=== PATIENT | male | born 1950 | race Caucasian/White ===

== ENCOUNTER 2017-08-24 05:16 | Inpatient (IN) ==
[2017-08-17 13:34] LABS: Basophils # 0.1 10*3/uL (0.0-0.2); Basophils % 0.8 % (0.0-0.8); Eosinophils # 0.3 10*3/uL (0.0-0.87); Eosinophils % 4.4 % (0.00-10.9); Hematocrit 40.3 VOL% (42.0-52.0); Hemoglobin 12.9 GM/DL (14.0-18.0); Immature Granulocytes % 0.5 %; Immature Granulocytes Absolute 0.03 #; Lymphocytes # 1.9 10*3/uL (1.4-4.0); Lymphocytes % 28.5 % (21.2-54.2); Mean Corpuscular Hemoglobin 29 PG (27-34); Mean Corpuscular Volume 89.2 FL (87-102); Mean Platelet Volume 11.4 FL (9.6-12.0); Monocytes # 0.8 10*3/uL (0.11-0.8); Neutrophils # 3.5 10*3/uL (1.4-7.4); Neutrophils % 53.8 % (38.7-73.9); Platelet Count 148 T/CUMM (130-400); Red Blood Count 4.52 MC/CUMM (3.8-5.5); Red Cell Distribution Width 13.5 % (9.3-17.3); White Blood Count 6.6 T/CUMM (4-12)
[2017-08-17 13:43] LABS: Apearance,Urine CLEAR (Clear); Bilirubin,Urine Negative (Negative); Blood, Urine Negative (Negative); Glucose,Urine (UA) Negative (Negative); Ketones,Urine Negative (Negative); Mucus,Urine Occasional /LPF (Occasional); Nitrite,Urine Negative (Negative); PT Patient Result 10.5 SECS; Partial Thromboplastin Time 24.8 SECS (0-40); Protein,Urine Negative; RBC,Urine 1 /HPF (0-4); Squamous Epithelial Cell,Urine Occasional /HPF (0-10); Urine Color Yellow (Yellow); Urine Specific Gravity 1.026 (1.001-1.035); WBC,Urine <1 /HPF (0-6)
[2017-08-17 13:57] LABS: Albumin 3.9 G/DL (3.4-5.0); Bilirubin,Total 0.6 MG/DL (0.2-1.0); Calcium 8.3 MG/DL (8.5-10.1); Osmolality,Calculated 284.1 MOS/KG (273-304); Potassium 4.5 MMOL/L (3.5-5.1); Total Protein 6.6 G/DL (6.4-8.3)
[2017-08-24] MEDS ORDERED: GABAPENTIN 400 MG CAPSULE PO ONE (05:40)
[2017-08-24] MEDS ORDERED: DIAZEPAM 5 MG TABLET PO ONE (05:40)
[2017-08-24] MEDS ORDERED: FAMOTIDINE 20 MG TABLET PO ONE (05:40)
[2017-08-24] MEDS ORDERED: ACETAMINOPHEN 500 MG TABLET PO ONE (05:40)
[2017-08-24] MEDS ORDERED: VANCOMYCIN INJ 1,000 MG in SODIUM CHLORIDE 0.9% 250 ML IV ONE (06:00)
[2017-08-24] MEDS ORDERED: CLINDAMYCIN INJ 900 MG in PREMIX 1 EACH IV ONE (06:00)
[2017-08-24] MEDS ORDERED: VANCOMYCIN 1,000 MG VIAL ONE (06:02)
[2017-08-24] MEDS ORDERED: CLINDAMYCIN INJ 50 ML IV ONE (06:03)
[2017-08-24] MEDS ORDERED: DIAZEPAM 5 MG TABLET ONE (06:45)
[2017-08-24] MEDS ORDERED: GABAPENTIN 400 MG CAPSULE ONE (06:45)
[2017-08-24] MEDS ORDERED: ACETAMINOPHEN 500 MG TABLET ONE (06:46)
[2017-08-24] MEDS ORDERED: FAMOTIDINE 20 MG TABLET ONE (06:46)
[2017-08-24] MEDS: LACTATED RINGERS 1,000 ML IV SCH ×2 (07:53→10:50)
[2017-08-24] MEDS ORDERED: TRANEXAMIC ACID 1,000 MG/10 ML VIAL IV ONE (09:39)
[2017-08-24] MEDS ORDERED: NALOXONE 0.4 MG/ML VIAL IV PRN (10:39)
[2017-08-24] MEDS ORDERED: MAGNESIUM HYDROXIDE SUSP 30 ML UDCUP PO PRN (10:39)
[2017-08-24] MEDS ORDERED: PROMETHAZINE 25 MG/1 ML VIAL IM PRN (10:39)
[2017-08-24] MEDS ORDERED: BISACODYL 10 MG SUPP RECTAL PRN (10:39)
[2017-08-24] MEDS ORDERED: HYDROmorphone 2 MG/1 ML VIAL IV PRN (10:39)
[2017-08-24] MEDS ORDERED: diphenhydrAMINE CAP 25 MG CAPSULE PO PRN (10:39)
[2017-08-24] MEDS ORDERED: ONDANSETRON 4 MG/2 ML VIAL IV PRN (10:39)
[2017-08-24] MEDS ORDERED: TEMAZEPAM 7.5 MG CAPSULE PO PRN (10:39)
[2017-08-24] MEDS ORDERED: LACTULOSE 20 GM/30 ML UDCUP PO PRN (10:39)
[2017-08-24 11:03] LABS: Apearance,Urine Clear (Clear); Bilirubin,Urine Negative (Negative); Blood, Urine Negative (Negative); Glucose,Urine (UA) Negative (Negative); Ketones,Urine Negative (Negative); Nitrite,Urine Negative (Negative); Protein,Urine Negative; Urine Color Yellow (Yellow)
[2017-08-24] MEDS ORDERED: LACTATED RINGERS 1,000 ML IV ONE (11:27)
[2017-08-24] MEDS ORDERED: MIDAZOLAM 2 MG/2 ML VIAL ONE (11:27)
[2017-08-24] MEDS ORDERED: ONDANSETRON 4 MG/2 ML VIAL ONE (11:27)
[2017-08-24] MEDS ORDERED: SODIUM CHLORIDE 0.9% 500 ML IV ONE (11:27)
[2017-08-24] MEDS ORDERED: fentaNYL 100 MCG/2 ML VIAL ONE (11:27)
[2017-08-24] MEDS ORDERED: PROPOFOL 200 MG/20 ML VIAL IV ONE (11:27)
[2017-08-24 11:37] LABS: WBC,Urine 0-1 /HPF (0-6)
[2017-08-24 11:38] LABS: Mucus,Urine 1+ /LPF (Occasional); Squamous Epithelial Cell,Urine Few /HPF (0-10)
[2017-08-24] MEDS: HYDROmorphone PCA 30 MG/30 ML SYRINGE IV SCH (14:28)
[2017-08-24] MEDS: CLINDAMYCIN INJ 900 MG in PREMIX 1 EACH IV SCH ×2 (15:34→21:31)
[2017-08-24] MEDS: DOCUSATE SODIUM 100 MG CAPSULE PO SCH (21:31)
[2017-08-24] MEDS: GABAPENTIN 100 MG CAPSULE PO SCH (21:31)
[2017-08-24] MEDS: FONDAPARINUX 2.5 MG/0.5 ML SYRINGE SUBCUT SCH (21:31)
[2017-08-25] MEDS: LACTATED RINGERS 1,000 ML IV SCH (04:39)
[2017-08-25 06:25] LABS: Basophils % 0.2 % (0.0-0.8); Eosinophils # 0.1 10*3/uL (0.0-0.87); Eosinophils % 0.8 % (0.00-10.9); Hematocrit 35.8 VOL% (42.0-52.0); Hemoglobin 12.1 GM/DL (14.0-18.0); Immature Granulocytes % 0.5 %; Immature Granulocytes Absolute 0.04 #; Lymphocytes % 11.1 % (21.2-54.2); Mean Corpuscular HGB Conc 33.8 GM/DL (32-36); Mean Corpuscular Hemoglobin 29 PG (27-34); Mean Corpuscular Volume 86.1 FL (87-102); Mean Platelet Volume 11.5 FL (9.6-12.0); Monocytes # 1.5 10*3/uL (0.11-0.8); Monocytes % 16.4 % (1.7-12.7); Neutrophils # 6.3 10*3/uL (1.4-7.4); Platelet Count 141 T/CUMM (130-400); Red Blood Count 4.16 MC/CUMM (3.8-5.5); Red Cell Distribution Width 13.5 % (9.3-17.3); White Blood Count 8.9 T/CUMM (4-12)
[2017-08-25 06:46] LABS: Eosinophils 1 % (0-10); Giant Platelets Few; Hypochromasia 1+; Lymphocytes 10 % (20-55); Ovalocytes Slight; Platelet Estimate Normal; Segmented Neutrophils 75 % (50-85); Total Cells Counted 100
[2017-08-25 07:01] LABS: Calcium 7.8 MG/DL (8.5-10.1); Osmolality,Calculated 274.8 MOS/KG (273-304); Potassium 4.4 MMOL/L (3.5-5.1)
[2017-08-25] MEDS: NAPROXEN 250 MG TABLET PO SCH (09:16)
[2017-08-25] MEDS: CALCIUM (CARBONATE)/VITAMIN D 600 MG-400 UNIT TABLET PO SCH (09:18)
[2017-08-25] MEDS: GABAPENTIN 100 MG CAPSULE PO SCH ×2 (09:18→20:31)
[2017-08-25] MEDS: OMEGA 3 ACID ETHYL ESTERS 1 GM CAPSULE PO SCH (09:18)
[2017-08-25] MEDS: LACTOBACILLUS ACIDOPHILUS/BULGARICUS CAPLET PO SCH (09:18)
[2017-08-25] MEDS: PANTOPRAZOLE 40 MG TABLET PO SCH (09:19)
[2017-08-25] MEDS: DOCUSATE SODIUM 100 MG CAPSULE PO SCH ×2 (09:19→20:30)
[2017-08-25] MEDS: ATORVASTATIN 10 MG TABLET PO SCH (09:19)
[2017-08-25] MEDS: ASPIRIN EC 81 MG TABLET PO SCH (09:20)
[2017-08-25] MEDS: MULTIVITAMIN (CENTRUM) TABLET PO SCH (09:22)
[2017-08-25] MEDS ORDERED: ACETAMINOPHEN 325 MG TABLET PO PRN (10:40)
[2017-08-25] MEDS: HYDROmorphone PCA 30 MG/30 ML SYRINGE IV SCH (11:54)
[2017-08-25] MEDS: FONDAPARINUX 2.5 MG/0.5 ML SYRINGE SUBCUT SCH (20:30)
[2017-08-26] MEDS: LACTATED RINGERS 1,000 ML IV SCH (01:39)
[2017-08-26] MEDS: LACTOBACILLUS ACIDOPHILUS/BULGARICUS CAPLET PO SCH (09:20)
[2017-08-26] MEDS: ASPIRIN EC 81 MG TABLET PO SCH (09:20)
[2017-08-26] MEDS: DOCUSATE SODIUM 100 MG CAPSULE PO SCH ×2 (09:21→20:20)
[2017-08-26] MEDS: ATORVASTATIN 10 MG TABLET PO SCH (09:21)
[2017-08-26] MEDS: CALCIUM (CARBONATE)/VITAMIN D 600 MG-400 UNIT TABLET PO SCH (09:21)
[2017-08-26] MEDS: MULTIVITAMIN (CENTRUM) TABLET PO SCH (09:21)
[2017-08-26] MEDS: GABAPENTIN 100 MG CAPSULE PO SCH ×2 (09:22→20:21)
[2017-08-26] MEDS: PANTOPRAZOLE 40 MG TABLET PO SCH (09:22)
[2017-08-26] MEDS: OMEGA 3 ACID ETHYL ESTERS 1 GM CAPSULE PO SCH (09:22)
[2017-08-26] MEDS: NAPROXEN 250 MG TABLET PO SCH ×2 (10:29→10:50)
[2017-08-26] MEDS: FONDAPARINUX 2.5 MG/0.5 ML SYRINGE SUBCUT SCH (20:20)
[2017-08-27] MEDS: LACTOBACILLUS ACIDOPHILUS/BULGARICUS CAPLET PO SCH (08:37)
[2017-08-27] MEDS: ASPIRIN EC 81 MG TABLET PO SCH (08:37)
[2017-08-27] MEDS: CALCIUM (CARBONATE)/VITAMIN D 600 MG-400 UNIT TABLET PO SCH (08:37)
[2017-08-27] MEDS: MULTIVITAMIN (CENTRUM) TABLET PO SCH (08:37)
[2017-08-27] MEDS: OMEGA 3 ACID ETHYL ESTERS 1 GM CAPSULE PO SCH (08:38)
[2017-08-27] MEDS: DOCUSATE SODIUM 100 MG CAPSULE PO SCH (08:38)
[2017-08-27] MEDS: PANTOPRAZOLE 40 MG TABLET PO SCH (08:38)
[2017-08-27] MEDS: ATORVASTATIN 10 MG TABLET PO SCH (08:38)
[2017-08-27] MEDS: NAPROXEN 250 MG TABLET PO SCH (08:38)
[2017-08-27] MEDS: GABAPENTIN 100 MG CAPSULE PO SCH (08:38)
[2017-08-27 11:34] VITALS: BP 130/70
== END 2017-08-27 14:00 | disposition home health service (06) | DRG 470 ==
LOC: N.SDSINP 05:16 → N.3E 11:42
PROVIDERS: ADMIT Orthopaedic Surgery; ATTEND Orthopaedic Surgery

== ENCOUNTER 2020-10-02 05:33 | Inpatient (IN) ==
[2020-09-26 11:37] LABS: Basophils % 0.7 % (0.0-0.8); Eosinophils # 0.2 10*3/uL (0.0-0.87); Eosinophils % 3.9 % (0.00-10.9); Hematocrit 44.3 VOL% (42.0-52.0); Hemoglobin 14.8 GM/DL (14.0-18.0); Immature Granulocytes % 0.5 %; Immature Granulocytes Absolute 0.03 #; Lymphocytes # 1.6 10*3/uL (1.4-4.0); Lymphocytes % 26.5 % (21.2-54.2); Mean Corpuscular HGB Conc 33.4 GM/DL (32-36); Mean Corpuscular Volume 92.9 FL (87-102); Mean Platelet Volume 11.4 FL (9.6-12.0); Monocytes % 11.5 % (1.7-12.7); Neutrophils % 56.9 % (38.7-73.9); Platelet Count 151 T/CUMM (130-400); Red Blood Count 4.77 MC/CUMM (3.8-5.5); Red Cell Distribution Width 12.8 % (9.3-17.3); White Blood Count 5.9 T/CUMM (4-12)
[2020-09-26 11:48] LABS: PT Patient Result 10.9 SECS (9.8-11.9); Partial Thromboplastin Time 27.3 SECS (23.9-33.8)
[2020-09-26 12:01] LABS: Albumin 3.9 G/DL (3.4-5.0); Bilirubin,Total 1.2 MG/DL (0.2-1.0); Calcium 8.7 MG/DL (8.5-10.1); Osmolality,Calculated 283.3 MOS/KG (273-304); Potassium 4.6 MMOL/L (3.5-5.1); Total Protein 6.4 G/DL (6.4-8.3)
[2020-09-26 12:43] LABS: Amorphous Crystals,Urine Few /HPF (Few); Bilirubin,Urine Negative (Negative); Blood, Urine Negative (Negative); Calcium Oxalate Crystals,Urine Occasional /HPF (Few); Glucose,Urine (UA) Negative (Negative); Ketones,Urine Negative (Negative); Mucus,Urine Moderate /LPF (Occasional); Nitrite,Urine Negative (Negative); Protein,Urine 30 MG/DL; Squamous Epithelial Cell,Urine Occasional /HPF (0-10); Urine Appearance CLOUDY (Clear); Urine Color Amber (Yellow); Urine Specific Gravity 1.033 (1.001-1.035); WBC,Urine 3 /HPF (0-6)
[2020-10-02] MEDS ORDERED: ACETAMINOPHEN 500 MG TABLET PO ONE (06:26)
[2020-10-02] MEDS ORDERED: GABAPENTIN 400 MG CAPSULE PO ONE (06:26)
[2020-10-02] MEDS ORDERED: FAMOTIDINE 20 MG TABLET PO ONE (06:26)
[2020-10-02] MEDS ORDERED: CLINDAMYCIN INJ 50 ML IV ONE (06:30)
[2020-10-02] MEDS ORDERED: VANCOMYCIN INJ 1,000 MG in SODIUM CHLORIDE 0.9% 250 ML IV ONE (06:30)
[2020-10-02] MEDS ORDERED: LACTATED RINGERS 1,000 ML IV SCH (06:30)
[2020-10-02] MEDS ORDERED: MIDAZOLAM 2 MG/2 ML VIAL ONE ×2 (06:37→07:05)
[2020-10-02] MEDS ORDERED: LIDOCAINE 2% 5 ML VIAL ONE (06:37)
[2020-10-02] MEDS ORDERED: fentaNYL 100 MCG/2 ML VIAL ONE (06:37)
[2020-10-02] MEDS ORDERED: DEXMEDETOMIDINE 200 MCG/2 ML VIAL ONE (06:39)
[2020-10-02] MEDS ORDERED: BUPIVACAINE SPINAL 0.75% 2 ML AMP SPINAL ONE (06:39)
[2020-10-02] MEDS ORDERED: ROPIVACAINE 0.5% 30 ML VIAL ONE (06:45)
[2020-10-02] MEDS ORDERED: DEXAMETHASONE 4 MG/1 ML VIAL ONE (06:45)
[2020-10-02] MEDS ORDERED: diphenhydrAMINE CAP 25 MG CAPSULE PO PRN (07:30)
[2020-10-02] MEDS ORDERED: PROMETHAZINE 25 MG/1 ML VIAL IM PRN (07:30)
[2020-10-02] MEDS ORDERED: CLINDAMYCIN INJ 900 MG in PREMIX 1 EACH IV ONE (07:30)
[2020-10-02] MEDS ORDERED: MAGNESIUM HYDROXIDE SUSP 30 ML UDCUP PO PRN (07:30)
[2020-10-02] MEDS ORDERED: BISACODYL 10 MG SUPP RECTAL PRN (07:30)
[2020-10-02] MEDS ORDERED: ONDANSETRON 4 MG/2 ML VIAL IV PRN (07:30)
[2020-10-02] MEDS ORDERED: MORPHINE 4 MG/1 ML VIAL IV PRN ×2 (07:30→13:26)
[2020-10-02] MEDS ORDERED: LACTULOSE 20 GM/30 ML UDCUP PO PRN (07:30)
[2020-10-02] MEDS ORDERED: PHENYLEPHRINE 1 MG/10 ML SYRINGE IV ONE (07:40)
[2020-10-02] MEDS ORDERED: ONDANSETRON 4 MG/2 ML VIAL ONE (07:42)
[2020-10-02] MEDS ORDERED: TRANEXAMIC ACID 1,000 MG/10 ML VIAL ONE (08:02)
[2020-10-02] MEDS ORDERED: GABAPENTIN 100 MG CAPSULE PO SCH (09:00)
[2020-10-02] MEDS ORDERED: NON-FORMULARY MEDICATION (Elderberry Fruit And Flower 460-115 mg Capsule) PO SCH (09:00)
[2020-10-02 09:47] LABS: Bilirubin,Urine Negative (Negative); Blood, Urine Negative (Negative); Glucose,Urine (UA) Negative (Negative); Ketones,Urine Negative (Negative); Nitrite,Urine Negative (Negative); Protein,Urine Negative; Urine Appearance Clear (Clear); Urine Color Yellow (Yellow)
[2020-10-02] MEDS: CLINDAMYCIN INJ 900 MG in PREMIX 1 EACH IV SCH ×2 (16:18→23:24)
[2020-10-02] MEDS: FONDAPARINUX 2.5 MG/0.5 ML SYRINGE SUBCUT SCH (18:41)
[2020-10-02] MEDS: IBUPROFEN 800 MG TABLET PO SCH (18:41)
[2020-10-02] MEDS: GABAPENTIN 300 MG CAPSULE PO SCH (20:54)
[2020-10-02] MEDS: DOCUSATE SODIUM 100 MG CAPSULE PO SCH (20:55)
[2020-10-02] MEDS ORDERED: NAPROXEN SODIUM 220 MG PO SCH (21:00)
[2020-10-02] MEDS ORDERED: TEMAZEPAM 7.5 MG CAPSULE PO PRN (21:00)
[2020-10-03 06:17] LABS: Basophils % 0.3 % (0.0-0.8); Eosinophils # 0.1 10*3/uL (0.0-0.87); Eosinophils % 1.4 % (0.00-10.9); Hematocrit 37.8 VOL% (42.0-52.0); Hemoglobin 12.5 GM/DL (14.0-18.0); Immature Granulocytes % 0.4 %; Immature Granulocytes Absolute 0.04 #; Lymphocytes # 1.3 10*3/uL (1.4-4.0); Lymphocytes % 13.9 % (21.2-54.2); Mean Corpuscular HGB Conc 33.1 GM/DL (32-36); Mean Platelet Volume 11.6 FL (9.6-12.0); Platelet Count 126 T/CUMM (130-400); Red Blood Count 4.02 MC/CUMM (3.8-5.5); Red Cell Distribution Width 12.7 % (9.3-17.3); White Blood Count 9.5 T/CUMM (4-12)
[2020-10-03 06:41] LABS: Osmolality,Calculated 281.4 MOS/KG (273-304); Potassium 4.1 MMOL/L (3.5-5.1)
[2020-10-03 06:44] LABS: Hypochromasia Slight
[2020-10-03 06:45] LABS: Microcytosis 1+; Platelet Estimate Adequate
[2020-10-03] MEDS ORDERED: VITAMIN E 400 UNIT CAPSULE PO SCH (09:00)
[2020-10-03] MEDS: CHOLECALCIFEROL 1,000 UNIT TABLET PO SCH (10:21)
[2020-10-03] MEDS: CALCIUM (CARBONATE)/VITAMIN D 600 MG-400 UNIT TABLET PO SCH (10:22)
[2020-10-03] MEDS: MULTIVITAMIN (CENTRUM) TABLET PO SCH (10:22)
[2020-10-03] MEDS: DOCUSATE SODIUM 100 MG CAPSULE PO SCH ×2 (10:22→21:16)
[2020-10-03] MEDS: ATORVASTATIN 20 MG TABLET PO SCH (10:22)
[2020-10-03] MEDS: FERROUS SULFATE 325 MG TABLET PO SCH (10:22)
[2020-10-03] MEDS: OMEGA 3 ACID ETHYL ESTERS 1 GM CAPSULE PO SCH (10:22)
[2020-10-03] MEDS: PANTOPRAZOLE 40 MG TABLET PO SCH (10:23)
[2020-10-03] MEDS: ASCORBIC ACID 500 MG TABLET PO SCH (10:23)
[2020-10-03] MEDS: ASPIRIN EC 81 MG TABLET PO SCH (10:23)
[2020-10-03] MEDS: IBUPROFEN 800 MG TABLET PO SCH ×2 (10:23→17:31)
[2020-10-03] MEDS: VITAMIN E 400 UNIT CAPSULE PO SCH (10:24)
[2020-10-03] MEDS: FONDAPARINUX 2.5 MG/0.5 ML SYRINGE SUBCUT SCH (17:31)
[2020-10-03] MEDS: GABAPENTIN 300 MG CAPSULE PO SCH (21:16)
[2020-10-04 08:18] VITALS: BP 109/47
[2020-10-04] MEDS: ASPIRIN EC 81 MG TABLET PO SCH (09:34)
[2020-10-04] MEDS: DOCUSATE SODIUM 100 MG CAPSULE PO SCH (09:34)
[2020-10-04] MEDS: CALCIUM (CARBONATE)/VITAMIN D 600 MG-400 UNIT TABLET PO SCH (09:34)
[2020-10-04] MEDS: ATORVASTATIN 20 MG TABLET PO SCH (09:34)
[2020-10-04] MEDS: OMEGA 3 ACID ETHYL ESTERS 1 GM CAPSULE PO SCH (09:34)
[2020-10-04] MEDS: PANTOPRAZOLE 40 MG TABLET PO SCH (09:35)
[2020-10-04] MEDS: MULTIVITAMIN (CENTRUM) TABLET PO SCH (09:35)
[2020-10-04] MEDS: FERROUS SULFATE 325 MG TABLET PO SCH (09:35)
[2020-10-04] MEDS: IBUPROFEN 800 MG TABLET PO SCH (09:35)
[2020-10-04] MEDS: CHOLECALCIFEROL 1,000 UNIT TABLET PO SCH (09:35)
[2020-10-04] MEDS: ASCORBIC ACID 500 MG TABLET PO SCH (09:35)
[2020-10-04] MEDS: VITAMIN E 400 UNIT CAPSULE PO SCH (09:35)
[2020-10-04] MEDS: FONDAPARINUX 2.5 MG/0.5 ML SYRINGE SUBCUT SCH (11:19)
== END 2020-10-04 12:00 | disposition home health service (06) | DRG 470 ==
LOC: N.OR 05:33 → N.SDSINP 05:35 → EDSTATUS 11:00 → N.3E 13:06
PROVIDERS: ADMIT Orthopaedic Surgery; ATTEND Orthopaedic Surgery

== ENCOUNTER 2020-10-30 10:08 | Observation (INO) ==
[2020-10-30] MEDS ORDERED: SODIUM CHLORIDE 0.9% 1,000 ML IV STA (11:21)
[2020-10-30 11:26] LABS: Basophils # 0.1 10*3/uL (0.0-0.2); Basophils % 0.5 % (0.0-0.8); Eosinophils # 0.2 10*3/uL (0.0-0.87); Eosinophils % 2.6 % (0.00-10.9); Hematocrit 43.9 VOL% (42.0-52.0); Hemoglobin 14.1 GM/DL (14.0-18.0); Immature Granulocytes % 0.4 %; Immature Granulocytes Absolute 0.04 #; Lymphocytes # 1.6 10*3/uL (1.4-4.0); Lymphocytes % 17.5 % (21.2-54.2); Mean Corpuscular HGB Conc 32.1 GM/DL (32-36); Mean Corpuscular Volume 92.4 FL (87-102); Mean Platelet Volume 11.3 FL (9.6-12.0); Monocytes % 16.3 % (1.7-12.7); Neutrophils % 62.7 % (38.7-73.9); Platelet Count 167 T/CUMM (130-400); Red Blood Count 4.75 MC/CUMM (3.8-5.5); Red Cell Distribution Width 12.9 % (9.3-17.3); White Blood Count 9.3 T/CUMM (4-12)
[2020-10-30 11:44] LABS: Lymphocytes 15 % (20-55); Platelet Estimate Adequate; Segmented Neutrophils 70 % (50-85); Total Cells Counted 100
[2020-10-30 11:45] LABS: Albumin 3.4 G/DL (3.4-5.0); Bilirubin,Total 1.2 MG/DL (0.2-1.0); Calcium 8.8 MG/DL (8.5-10.1); Osmolality,Calculated 276.7 MOS/KG (273-304); Potassium 3.9 MMOL/L (3.5-5.1); Total Protein 7.1 G/DL (6.4-8.2)
[2020-10-30] MEDS ORDERED: HYDROmorphone 2 MG/1 ML VIAL IV PRN ×2 (12:46→16:04)
[2020-10-30] MEDS ORDERED: KETOROLAC 15 MG/1 ML VIAL IV PRN (12:46)
[2020-10-30] MEDS ORDERED: BISACODYL 5 MG TABLET PO PRN (12:46)
[2020-10-30] MEDS ORDERED: ALBUTEROL/IPRATROPIUM 3 ML NEB RESP TX PRN (12:46)
[2020-10-30] MEDS: ONDANSETRON 4 MG/2 ML VIAL IV PRN ×2 (15:04→21:00)
[2020-10-30] MEDS: LEVOFLOXACIN INJ 750 MG in PREMIX 1 EACH IV SCH (15:05)
[2020-10-30] MEDS: LACTATED RINGERS 1,000 ML IV SCH ×2 (15:05→20:51)
[2020-10-30] MEDS ORDERED: LIDOCAINE 1%/EPI INJ 20 ML VIAL ONE (15:31)
[2020-10-30] MEDS ORDERED: BUPIVACAINE MPF 0.25% 30 ML VIAL ONE (15:31)
[2020-10-30 15:42] LABS: Bilirubin,Urine Negative (Negative); Blood, Urine Negative (Negative); Glucose,Urine (UA) Negative (Negative); Ketones,Urine 20 mg/dL (Negative); Mucus,Urine Few /LPF (Occasional); Nitrite,Urine Negative (Negative); Protein,Urine Negative; RBC,Urine 9 /HPF (0-4); Squamous Epithelial Cell,Urine Occasional /HPF (0-10); Urine Appearance CLEAR (Clear); Urine Color Yellow (Yellow)
[2020-10-30] MEDS: metroNIDAZOLE INJ 500 MG in PREMIX 1 EACH IV SCH ×2 (15:55→20:51)
[2020-10-30] MEDS ORDERED: diphenhydrAMINE 50 MG/1 ML VIAL IV PRN (16:04)
[2020-10-30] MEDS ORDERED: ONDANSETRON 4 MG/2 ML VIAL IV PRN (16:04)
[2020-10-30] MEDS ORDERED: PROMETHAZINE INJ 25 MG in SODIUM CHLORIDE 0.9% 50 ML IV PRN (16:04)
[2020-10-30] MEDS ORDERED: MEPERIDINE 25 MG/1 ML VIAL IV PRN (16:04)
[2020-10-30] MEDS ORDERED: fentaNYL 100 MCG/2 ML VIAL ONE (16:21)
[2020-10-30] MEDS ORDERED: CLINDAMYCIN INJ 50 ML IV ONE (16:43)
[2020-10-30] MEDS ORDERED: DEXAMETHASONE 4 MG/1 ML VIAL ONE (16:43)
[2020-10-30] MEDS ORDERED: ROCURONIUM 50 MG/5 ML VIAL IV ONE (16:43)
[2020-10-30] MEDS ORDERED: SEVOFLURANE 1 UNIT/15 MINUTE INH ONE ×10 (16:43→18:45)
[2020-10-30] MEDS ORDERED: SUCCINYLCHOLINE 200 MG/10 ML VIAL ONE (16:43)
[2020-10-30] MEDS ORDERED: LIDOCAINE 2% 5 ML VIAL ONE (16:43)
[2020-10-30] MEDS ORDERED: ONDANSETRON 4 MG/2 ML VIAL ONE (16:43)
[2020-10-30] MEDS ORDERED: propofoL 200 MG/20 ML VIAL IV ONE (16:43)
[2020-10-30] MEDS ORDERED: TISSUE ADHESIVE 1 EACH APPLICATOR TOP ONE ×2 (17:40→18:50)
[2020-10-30] MEDS ORDERED: LACTATED RINGERS 1,000 ML IV ONE (18:14)
[2020-10-30] MEDS ORDERED: PHENYLEPHRINE 1 MG/10 ML SYRINGE IV ONE (18:14)
[2020-10-30] MEDS ORDERED: NEOSTIGMINE 10 MG/10 ML VIAL ONE (18:45)
[2020-10-30] MEDS ORDERED: GLYCOPYRROLATE 0.4 MG/2 ML VIAL ONE (18:45)
[2020-10-30] MEDS ORDERED: HYDROmorphone 2 MG/1 ML VIAL ONE (18:49)
[2020-10-30] MEDS ORDERED: LABETALOL 20 MG/4 ML SYRINGE IV ONE ×2 (18:53→19:27)
[2020-10-30] MEDS: HYDROmorphone 2 MG/1 ML VIAL IV PRN ×4 (19:15→19:30)
[2020-10-31] MEDS: ACETAMINOPHEN 325 MG TABLET PO PRN ×2 (00:48→23:11)
[2020-10-31] MEDS: metroNIDAZOLE INJ 500 MG in PREMIX 1 EACH IV SCH ×3 (04:59→20:36)
[2020-10-31] MEDS: LACTATED RINGERS 1,000 ML IV SCH ×3 (05:03→20:40)
[2020-10-31 05:48] LABS: Basophils % 0.2 % (0.0-0.8); Hematocrit 36.3 VOL% (42.0-52.0); Hemoglobin 11.7 GM/DL (14.0-18.0); Immature Granulocytes % 0.2 %; Immature Granulocytes Absolute 0.02 #; Lymphocytes # 0.6 10*3/uL (1.4-4.0); Mean Corpuscular HGB Conc 32.2 GM/DL (32-36); Mean Corpuscular Volume 93.1 FL (87-102); Mean Platelet Volume 11.7 FL (9.6-12.0); Monocytes % 16.4 % (1.7-12.7); Neutrophils % 77.2 % (38.7-73.9); Platelet Count 127 T/CUMM (130-400); Red Cell Distribution Width 13.1 % (9.3-17.3); White Blood Count 9.4 T/CUMM (4-12)
[2020-10-31 06:24] LABS: Band Neutrophils 3 % (0-10); Hypochromasia Slight; Lymphocytes 4 % (20-55); Microcytosis 1+; Platelet Estimate Adequate; Segmented Neutrophils 76 % (50-85); Total Cells Counted 100
[2020-10-31 06:28] LABS: Albumin 2.6 G/DL (3.4-5.0); Bilirubin,Total 1.9 MG/DL (0.2-1.0); Calcium 7.9 MG/DL (8.5-10.1); Potassium 3.9 MMOL/L (3.5-5.1); Total Protein 5.8 G/DL (6.4-8.2)
[2020-10-31] MEDS: PANTOPRAZOLE 40 MG TABLET PO SCH (09:04)
[2020-10-31 13:41] LABS: Albumin 2.6 G/DL (3.4-5.0); Bilirubin,Total 1.9 MG/DL (0.2-1.0); Calcium 7.9 MG/DL (8.5-10.1); Osmolality,Calculated 276.7 MOS/KG (273-304); Potassium 3.9 MMOL/L (3.5-5.1); Total Protein 5.8 G/DL (6.4-8.2)
[2020-10-31] MEDS: LEVOFLOXACIN INJ 750 MG in PREMIX 1 EACH IV SCH (15:58)
[2020-10-31] MEDS: GABAPENTIN 300 MG CAPSULE PO SCH ×2 (15:58→20:36)
[2020-11-01] MEDS: LACTATED RINGERS 1,000 ML IV SCH ×2 (01:05→05:28)
[2020-11-01] MEDS: metroNIDAZOLE INJ 500 MG in PREMIX 1 EACH IV SCH (05:04)
[2020-11-01 05:58] LABS: Basophils % 0.3 % (0.0-0.8); Eosinophils # 0.2 10*3/uL (0.0-0.87); Eosinophils % 2.4 % (0.00-10.9); Hematocrit 34.6 VOL% (42.0-52.0); Hemoglobin 11.1 GM/DL (14.0-18.0); Immature Granulocytes % 0.6 %; Immature Granulocytes Absolute 0.04 #; Lymphocytes # 0.7 10*3/uL (1.4-4.0); Lymphocytes % 11.6 % (21.2-54.2); Mean Corpuscular HGB Conc 32.1 GM/DL (32-36); Mean Corpuscular Volume 93.3 FL (87-102); Mean Platelet Volume 11.3 FL (9.6-12.0); Monocytes % 15.6 % (1.7-12.7); Neutrophils % 69.5 % (38.7-73.9); Platelet Count 109 T/CUMM (130-400); Red Blood Count 3.71 MC/CUMM (3.8-5.5); Red Cell Distribution Width 13.1 % (9.3-17.3); White Blood Count 6.3 T/CUMM (4-12)
[2020-11-01 06:15] LABS: Albumin 2.3 G/DL (3.4-5.0); Bilirubin,Total 1.5 MG/DL (0.2-1.0); Osmolality,Calculated 274.7 MOS/KG (273-304); Potassium 3.8 MMOL/L (3.5-5.1); Total Protein 5.5 G/DL (6.4-8.2)
[2020-11-01 06:21] LABS: Albumin 2.4 G/DL (3.4-5.0); Bilirubin,Direct 0.52 MG/DL (0.0-0.20); Bilirubin,Indirect 1.1 MG/DL (0.0-1.0); Bilirubin,Total 1.6 MG/DL (0.2-1.0); Total Protein 5.4 G/DL (6.4-8.2)
[2020-11-01 06:25] LABS: Hypochromasia Slight; Lymphocytes 10 % (20-55); Segmented Neutrophils 75 % (50-85); Total Cells Counted 100
[2020-11-01 06:26] LABS: Microcytosis 1+
[2020-11-01] MEDS: PANTOPRAZOLE 40 MG TABLET PO SCH (08:51)
[2020-11-01] MEDS: GABAPENTIN 300 MG CAPSULE PO SCH (08:52)
[2020-11-01] MEDS ORDERED: ASPIRIN 325 MG TABLET PO SCH (09:00)
[2020-11-01 11:35] VITALS: BP 136/52
== END 2020-11-01 14:08 | disposition home or self-care (01) ==
LOC: N.ED 10:08 → N.EDINP 10:08 → N.3E 15:37
PROVIDERS: ADMIT Student in an Organized Health Care Education/Training Program; ATTEND Student in an Organized Health Care Education/Training Program
PROC: LAPCHOL (2020-10-30 16:23)